=== PATIENT | male | born 1985 | race Caucasian/White ===

== ENCOUNTER 2023-08-31 13:34 | Inpatient (IN) | payer MEDICARE, OTHER ==
--- NOTE | 2023-08-31 13:45 | ED ---
General Adult HPI - General Stated complaint: High Blood Sugar Time Seen by Provider: 08/31/23 13:38 - History of Present Illness Initial comments: Dictation was produced using [employer] dictation software. please excuse any grammatical, word or spelling errors. Chief Complaint: 38-year-old diabetic male presents to the ER from [place] emergency room for DKA History of Present Illness: Patient 38-year-old male he initially presented to [place] emergency department for nausea and vomiting for couple days. Patient ran out of his long-acting insulin due to insurance issues. He has been trying to manage his diabetes with quick acting insulin. Patient was seen and evaluated at outside emergency department found to be DKA. Patient had a gap in the 40s with a bicarb less than 5. He had an initial glucose of 904. Patient also has stress leukocytosis. Patient Nuys any pain complaints at the bedside he feels much better since getting fluids and being on insulin drip for some time. He has no pain complaints. Denies any fever chills or night sweats. The ROS documented in this emergency department record has been reviewed and confirmed by me. Those systems with pertinent positive or negative responses have been documented in the HPI. All other systems are other negative and/or noncontributory. - Related Data Home Medications Medication Instructions Recorded Confirmed Aspirin EC [Ecotrin Low Dose] 81 mg PO DIRECTED 08/31/23 08/31/23 INSULIN ASPART (NovoLOG) [NovoLOG See Protocol SQ DIRECTED 08/31/23 08/31/23 (formulary)] Insulin Glargine [Lantus Vial] 20 unit SQ DIRECTED 08/31/23 08/31/23 Losartan [Cozaar] 25 mg PO DIRECTED 08/31/23 08/31/23 Rosuvastatin [Crestor] 20 mg PO DIRECTED 08/31/23 08/31/23 carBAMazepine [carBAMazepine ER] 100 mg PO Q12HR 08/31/23 08/31/23 clonazePAM 0.5 mg PO Q12H PRN 08/31/23 08/31/23 Allergies Allergy/AdvReac Type Severity Reaction Status Date / Time codeine Allergy see comment Verified 08/31/23 14:47 Review of Systems ROS Statement: Those systems with pertinent positive or pertinent negative responses have been documented in the HPI. ROS Other: All systems not noted in ROS Statement are negative. General Exam - General Exam Comments Initial Comments: PHYSICAL EXAM: General Impression: Alert and oriented x3, not in acute distress HEENT: Normocephalic atraumatic, extra-ocular movements intact, pupils equal and reactive to light bilaterally, dry mucous membranes Cardiovascular: Heart regular rate and rhythm Chest: Able to complete full sentences, no retractions, no tachypnea Abdomen: abdomen soft, non-tender, non-distended, no organomegaly Musculoskeletal: Pulses present and equal in all extremities, no peripheral edema Motor: no focal deficits noted Neurological: CN II-XII grossly intact, no focal motor or sensory deficits noted Skin: Intact with no visualized rashes Psych: Normal affect and mood Course Vital Signs 08/31/23 08/31/23 13:52 14:28 Temperature 98.8 F Pulse Rate 115 H Respiratory 20 Rate Blood Pressure 119/74 O2 Sat by Pulse 100 Oximetry Medical Decision Making - Medical Decision Making Was pt. sent in by a medical professional or institution (, PA, STITCHING MACHINE OPERATOR, urgent care, hospital, or residential...) When possible be specific @ -Sent in from outside ER Did you speak to anyone other than the patient for history (EMS, parent, family, police, friend...)? What history was obtained from this source @ -Some history obtained from transferring ER doctor along with EMS Did you review nursing and triage notes (agree or disagree)? Why? @ -I reviewed and agree with nursing and triage notes Were old charts reviewed (outside hosp., previous admission, EMS record, old EKG, old radiological studies, urgent care reports/EKG's, residential records)? Report findings @ -Transfer documentation was reviewed showing patient had leukocytosis along with bicarb less than 5, glucose of 904, anion gap in the 40s Differential Diagnosis (chest pain, altered mental status, abdominal pain women, abdominal pain men, vaginal bleeding, musculoskeletal, weakness, fever, dyspnea, syncope, headache, dizziness, GI bleed, back pain, seizure, CVA, palpatations, mental health)? @ -Differential Weakness: Hypoglycemia, shock, sepsis, hyponatremia, anemia, infection, WI, ETOH, adverse medicine reaction, overdose, stroke, this is not meant to be an all-inclusive list. EKG interpreted by me (3pts min.). @ -None done X-rays interpreted by me (1pt min.). @ -None done CT interpreted by me (1pt min.). @ -None done U/S interpreted by me (1pt. min.). @ -None done What testing was considered but not performed or refused? (CT, X-rays, U/S, labs)? Why? @ -None What meds were considered but not given or refused? Why? @ -None Did you discuss the management of the patient with other professionals (professionals i.e. , PA, STITCHING MACHINE OPERATOR, lab, RT, psych nurse, psychiatric social worker, supervisor intelligence analyst, teacher, debt recovery officer, test case developer)? Give summary @ -Case discussed with hospitalist for admission Was smoking cessation discussed for >3mins.? @ -No Was critical care preformed (if so, how long)? @ -No Were there social determinants of health that impacted care today? How? (Homelessness, low income, unemployed, alcoholism, drug addiction, transportation, low edu. Level, literacy, decrease access to med. care, longterm, rehab)? @ -No Was there de-escalation of care discussed even if they declined (Discuss DNR or withdrawal of care, Hospice)? DNR status @ -No What co-morbidities impacted this encounter? (DM, HTN, Smoking, COPD, CAD, Cancer, CVA, ARF, Chemo, Hep., AIDS, mental health diagnosis, sleep apnea, morbid obesity)? @ -None Was patient admitted / discharged? Hospital course, mention meds given and route, prescriptions, significant lab abnormalities, going to OR and other pertinent info. @ -38-year-old male transferred from outside emergency department for diabetic ketoacidosis. Patient had significantly abnormal labs according to transfer documentation. Vital signs upon arrival shows heart rate of 115, rest of vital signs within acceptable limits. Patient is mentating well he does appear to be in no acute distress. Does not smell of acetone. Laboratory evaluation ordered here with improvement of leukocytosis to 16.2, pseudo hyponatremia 127, gap of 23 bicarb of 10 and glucose of 4 3. Patient's labs are significantly improved after several minutes on insulin drip and IV fluids. Patient will be admitted to telemetry. Undiagnosed new problem with uncertain prognosis? @ -No Drug Therapy requiring intensive monitoring for toxicity (Heparin, Nitro, Insulin, Cardizem)? @ -No Were any procedures done? @ -No Diagnosis/symptom? Acute, or Chronic, or Acute on Chronic? Uncomplicated (without systemic symptoms) or Complicated (systemic symptoms)? @ -Diabetic ketoacidosis Side effects of treatment? @ -No Exacerbation, Progression, or Severe Exacerbation? @ -No Poses a threat to life? threat to life, COPD, DKA, ARF, appy, cholecystitis, CVA, Diverticulitis, Homicidal, Suicidal, threat to staff... and all critical care pts) @ -yes - Lab Data Result diagrams: 08/31/23 14:06 08/31/23 14:06 Lab Results 08/31/23 08/31/23 08/31/23 Range/Units 14:06 14:06 14:06 WBC 16.2 H (3.8-10.6) k/uL RBC 4.17 L (4.30-5.90) m/uL Hgb 12.5 L (13.0-17.5) gm/dL Hct 39.3 (39.0-53.0) % MCV 94.1 (80.0-100.0) fL MCH 29.9 (25.0-35.0) pg MCHC 31.7 (31.0-37.0) g/dL RDW 13.0 (11.5-15.5) % Plt Count 251 (150-450) k/uL MPV 8.5 Neutrophils % 86 % Lymphocytes % 6 % Monocytes % 7 % Eosinophils % 0 % Basophils % 0 % Neutrophils # 13.9 H (1.3-7.7) k/uL Lymphocytes # 0.9 L (1.0-4.8) k/uL Monocytes # 1.2 H (0-1.0) k/uL Eosinophils # 0.0 (0-0.7) k/uL Basophils # 0.0 (0-0.2) k/uL Sodium 127 L (137-145) mmol/L Potassium 3.6 (3.5-5.1) mmol/L Chloride 94 L (98-107) mmol/L Carbon Dioxide 10 L (22-30) mmol/L Anion Gap 23 mmol/L BUN 29 H (9-20) mg/dL Creatinine 1.14 (0.66-1.25) mg/dL Est GFR (CKD-EPI)AfAm >90 (>60 ml/min/1.73 sqM) Est GFR (CKD-EPI)NonAf 82 (>60 ml/min/1.73 sqM) Glucose 403 H (74-99) mg/dL POC Glucose (mg/dL) 393 H (70-110) mg/dL POC Glu Ortho Nurse Sonny Washington Calcium 7.8 L (8.4-10.2) mg/dL Disposition Clinical Impression: DKA (diabetic ketoacidosis) Disposition: ADMITTED IP TO THIS HOSP Condition: Fair Referrals: Rodolfo Yoon MD [Primary Care Provider] - 1-2 days Decision Time: 15:03
[2023-08-31 14:07] LABS: Glucose,Whole Blood 393 mg/dL (70-110)
[2023-08-31] MEDS: INSULIN REGULAR 100 UNIT in SODIUM CHLORIDE 0.9% 100 ML IV SCH (14:13)
[2023-08-31] MEDS: SODIUM CHLORIDE 0.9% 1,000 ML IV SCH (14:15)
[2023-08-31 14:53] LABS: African American GFR (CKD) >90 (>60 ml/min/1.73 sqM); Anion Gap 23 mmol/L; Blood Urea Nitrogen 29 mg/dL (9-20); Calcium 7.8 mg/dL (8.4-10.2); Carbon Dioxide 10 mmol/L (22-30); Chloride 94 mmol/L (98-107); Glucose 403 mg/dL (74-99); Non-African American GFR(CKD) 82 (>60 ml/min/1.73 sqM); Potassium 3.6 mmol/L (3.5-5.1); Sodium 127 mmol/L (137-145)
[2023-08-31 14:54] LABS: Basophils % (A) 0 %; Eosinophils % (A) 0 %; HCT 39.3 % (39.0-53.0); HGB 12.5 gm/dL (13.0-17.5); Lymphocytes # (A) 0.9 k/uL (1.0-4.8); Lymphocytes % (A) 6 %; MCH 29.9 pg (25.0-35.0); MCHC 31.7 g/dL (31.0-37.0); MCV 94.1 fL (80.0-100.0); Mean Platelet Volume 8.5; Monocytes # (A) 1.2 k/uL (0-1.0); Monocytes % (A) 7 %; Neutrophils # (A) 13.9 k/uL (1.3-7.7); Neutrophils % (A) 86 %; Platelet Count 251 k/uL (150-450); RBC 4.17 m/uL (4.30-5.90); WBC 16.2 k/uL (3.8-10.6)
[2023-08-31] MEDS ORDERED: NALOXONE 0.4 MG/ML 1 ML VIAL IV PRN (14:58)
[2023-08-31 15:05] LABS: Glucose,Whole Blood 333 mg/dL (70-110)
[2023-08-31 15:18] LABS: VBG PH 7.25 (7.31-7.41)
[2023-08-31] MEDS: PANTOPRAZOLE 40 MG/10 ML VIAL IVP SCH ×2 (15:26→21:04)
--- NOTE | 2023-08-31 15:55 | P.CNPUL ---
History of Present Illness Consult date: 08/31/23 Requesting physician: Vadim Moreau Reason for consult: other (Possible ICU admission) Chief complaint: Nausea vomiting History of present illness: This is a 38-year-old male patient with a known history of diabetes mellitus hypertension, hyperlipidemia. He had been without his long-acting insulin for nearly 2 months due to insurance issues. He presented to [facility] earlier today with nausea and vomiting. He was found to be in DKA. He was transferred here for further care. He is seen in consultation in the emergency department. He is currently awake and alert in no acute distress. He is still somewhat nauseated. He is having issues with heartburn. White count 16.2. H emoglobin 12.5. Platelets 251. Sodium 127. Potassium 3.6. Bicarb 10. Anion gap 23. BUN 29. Creatinine 1.14. Most recent glucose 333. He is currently on an insulin drip at 5.77 units/h. He is receiving normal saline at 200 MLS per hour. Review of Systems REVIEW OF SYSTEMS: CONSTITUTIONAL: Denies any recent significant weight loss or weight gain. EYES: Denies change in vision. EARS, NOSE, MOUTH, THROAT: Denies headaches, denies sore throat. CARDIOVASCULAR: Denies chest pain, palpitations or syncopal episodes. RESPIRATORY: Denies shortness of breath, cough, congestion or hemoptysis. GASTROINTESTINAL: Positive for nausea, vomiting, abdominal pain GENITOURINARY: Denies hematuria, denies infections. MUSKULOSKELETAL: Denies pain, denies swelling. INTEGUMENTARY: Denies rash, denies eczema. NEUROLOGICAL: Denies recent memory loss, no recent seizure activity. PSYCHIATRIC: Denies anxiety, denies depression. HEMATOLOGIC/LYMPHATIC: Denies anemia, denies enlarged lymph nodes. Past Medical History Past Medical History: Diabetes Mellitus History of Any Multi-Drug Resistant Organisms: None Reported Past Surgical History: No Surgical Hx Reported Past Psychological History: ADD/ADHD, Bipolar Smoking Status: Current every day smoker Past Alcohol Use History: Daily Past Drug Use History: None Reported Medications and Allergies Home Medications Medication Instructions Recorded Confirmed Type Aspirin EC [Ecotrin Low Dose] 81 mg PO DIRECTED 08/31/23 08/31/23 History INSULIN ASPART (NovoLOG) [NovoLOG See Protocol SQ DIRECTED 08/31/23 08/31/23 History (formulary)] Insulin Glargine [Lantus Vial] 20 unit SQ DIRECTED 08/31/23 08/31/23 History Losartan [Cozaar] 25 mg PO DIRECTED 08/31/23 08/31/23 History Rosuvastatin [Crestor] 20 mg PO DIRECTED 08/31/23 08/31/23 History carBAMazepine [carBAMazepine ER] 100 mg PO Q12HR 08/31/23 08/31/23 History clonazePAM 0.5 mg PO Q12H PRN 08/31/23 08/31/23 History Allergies Allergy/AdvReac Type Severity Reaction Status Date / Time codeine Allergy see comment Verified 08/31/23 14:47 Physical Exam Vitals: Vital Signs Temp Pulse Resp BP Pulse Ox 08/31/23 15:05 110 H 22 103/72 99 08/31/23 14:28 98.8 F 119/74 08/31/23 13:52 115 H 20 100 Intake and Output 08/31/23 08/31/23 08/31/23 06:59 14:59 22:59 Other: Weight 57.153 kg GENERAL EXAM: Alert, pleasant 38-year-old male, room air, fairly comfortable in no apparent distress. HEAD: Normocephalic. EYES: Normal reaction of pupils, equal size. NOSE: Clear with pink turbinates. THROAT: No erythema or exudates. NECK: No masses, no JVD. CHEST: No chest wall deformity. LUNGS: Equal air entry with no crackles, wheeze, rhonchi or dullness. CVS: S1 and S2 normal with no audible murmur, regular rhythm. ABDOMEN: No hepatosplenomegaly, normal bowel sounds, no guarding or rigidity. SPINE: No scoliosis or deformity SKIN: No rashes CENTRAL NERVOUS SYSTEM: No focal deficits, tone is normal in all 4 extremities. EXTREMITIES: There is no peripheral edema. No clubbing, no cyanosis. Peripheral pulses are intact. Results - Laboratory Findings CBC and BMP: 08/31/23 14:06 08/31/23 14:06 Abnormal lab findings: Abnormal Labs 08/31/23 08/31/23 08/31/23 14:06 14:06 14:06 WBC 16.2 H RBC 4.17 L Hgb 12.5 L Neutrophils # 13.9 H Lymphocytes # 0.9 L Monocytes # 1.2 H VBG pH VBG pCO2 VBG HCO3 Sodium 127 L Chloride 94 L Carbon Dioxide 10 L BUN 29 H Glucose 403 H POC Glucose (mg/dL) 393 H Calcium 7.8 L 08/31/23 08/31/23 15:03 15:05 WBC RBC Hgb Neutrophils # Lymphocytes # Monocytes # VBG pH 7.25 L VBG pCO2 27 L VBG HCO3 12 L Sodium Chloride Carbon Dioxide BUN Glucose POC Glucose (mg/dL) 333 H Calcium Assessment and Plan Assessment: Acute diabetic ketoacidosis secondary to nausea and vomiting and being without long acting insulin for nearly 2 months History of diabetes mellitus Hyponatremia Hypertension Hyperlipidemia Plan: The patient was seen and evaluated Labs and medications reviewed Continue insulin drip Continue fluid resuscitation Await follow-up labs Social work consult to assist with medication costs We will continue to follow and make further recommendations based on his clinical status I have personally seen and examined the patient, performed the documentation and the assessment and plan as written. Number of minutes spent on the visit: 20.
[2023-08-31 16:03] LABS: Glucose,Whole Blood 253 mg/dL (70-110)
[2023-08-31 16:20] LABS: African American GFR (CKD) >90 (>60 ml/min/1.73 sqM); Anion Gap 22 mmol/L; Blood Urea Nitrogen 26 mg/dL (9-20); Carbon Dioxide 11 mmol/L (22-30); Chloride 97 mmol/L (98-107); Glucose 282 mg/dL (74-99); Non-African American GFR(CKD) >90 (>60 ml/min/1.73 sqM); Potassium 3.7 mmol/L (3.5-5.1); Sodium 130 mmol/L (137-145)
[2023-08-31] MEDS: D5-0.45% NACL WITH KCL 20MEQ/L 1,000 ML IV SCH (16:45)
[2023-08-31 17:02] LABS: Glucose,Whole Blood 180 mg/dL (70-110)
[2023-08-31] MEDS ORDERED: Potassium Replacement Protocol 1 EACH MISC MISCELLANE PRN (17:57)
[2023-08-31] MEDS ORDERED: Magnesium Replacement Protocol 1 EACH MISC MISCELLANE PRN (17:57)
[2023-08-31] MEDS ORDERED: DEXTROSE 50% SYRINGE 50 ML IVP PRN ×2 (17:57)
[2023-08-31] MEDS ORDERED: ACETAMINOPHEN TAB 325 MG TAB PO PRN (17:58)
[2023-08-31] MEDS ORDERED: MELATONIN 3 MG TABLET PO PRN (17:58)
[2023-08-31 18:01] LABS: Glucose,Whole Blood 165 mg/dL (70-110)
--- NOTE | 2023-08-31 18:07 | P.HPIM ---
History of Present Illness H&P Date: 08/31/23 Chief Complaint: vomiting Patient is a 38-year-old male with insulin-dependent diabetes mellitus, hypertension, dyslipidemia, tobacco abuse, and EtOH dependency who initially presented to an outside hospital with complaints of intractable nausea and vomiting. There he underwent extensive evaluation was found to have DKA with a serum bicarb of less then 5, blood sugar greater than 500, and sodium of 126. He was given IV fluid boluses, started on maintenance IV fluids, and an insulin drip. On arrival to our facility he was noted to be tachycardic with a pulse of 115. Initial laboratory analysis included CBC, VBG, and BMP which were remarkable for white blood cell count of 16.2, sodium 127, BUN 29, creatinine 1.14, glucose of 403, and pH of 7.25. He was continued on IV fluids and an insulin drip. Arrangements were made for admission for DKA. Patient seen and examined at bedside. He had a change in his insurance from Medicare to Medicaid and since that time has been struggling to obtain insulin as they are no longer covering his long acting insulin. He reports that he has been very fatigued, nauseous, and vomiting. His last episode of DKA was approximately 1 year ago. He denies any recent illnesses or fevers. He drinks 3 beers every other day and smokes approximately 1 pack daily. Vital signs reviewed General: Ill-appearing, mild distress, poor dentition, appears at stated age Derm: warm, dry, multiple tattoos Eyes: EOMI, no lid lag, anicteric sclera, pupils equal round reactive to light, dry mucous membranes ENT: Nose and ears atraumatic Cardiovascular: S1S2 reg, no murmur, no edema Lungs: clear to auscultation bilateral, no rhonchi, no rales, no wheeze, no accessory muscle use Abdominal: soft, nontender to palpation, no guarding Ext: no gross muscle atrophy, no contractures Neuro: CN II-XII grossly intact, No focal neuro deficits Psych: Alert, oriented, appropriate affect Assessment/Plan: DKA secondary to difficulty obtaining medications Pseudohyponatremia Dehydration Intractable nausea and vomiting -Continue with insulin drip. Currently at 5 units/h will adjust based on blood sugars -Continue with D5 half-normal saline at 150 cc/h -Continue with every hour blood sugar checks. Continue to follow phosphorus every 4 hours, BUN every 4 hours, electrolytes every 4 hours, and creatinine every 4 hours. -Clear liquid diet -Check A1c -Will need to work with outpatient pharmacy to determine what insulins are covered on his Medicaid plan. Hypertension Dyslipidemia -Patient has not been taking any of his medications and blood pressure is currently 103/72. Will continue to monitor blood pressures -Once vomiting is resolved we will resume statin Tobacco dependency -Nicotine patch 21 mcg daily Alcohol use -Patient denies ever having alcohol withdrawal during any of his prior DKA episodes -Will monitor with CIWA but will hold off on benzodiazepine use at this time -Start thiamine 100 mg and folic acid 1 mg daily Imaging: None Data Review: As per HPI The patient is admitted with an anticipated greater than 2 midnight stay for evaluation of DKA DVT prophylaxis: Lovenox Anticipated discharge date: 2-[address]: Home This dictation was prepared using [email or web address] voice recognition software. Though every attempt is made to correct errors during dictation some may still exist. Past Medical History Past Medical History: Diabetes Mellitus, Hyperlipidemia, Hypertension Additional Past Medical History / Comment(s): seizure History of Any Multi-Drug Resistant Organisms: None Reported Past Surgical History: No Surgical Hx Reported Past Anesthesia/Blood Transfusion Reactions: No Reported Reaction Past Psychological History: ADD/ADHD, Bipolar Smoking Status: Current every day smoker Past Alcohol Use History: Daily Past Drug Use History: None Reported Medications and Allergies Home Medications Medication Instructions Recorded Confirmed Type Aspirin EC [Ecotrin Low Dose] 81 mg PO DIRECTED 08/31/23 08/31/23 History INSULIN ASPART (NovoLOG) [NovoLOG See Protocol SQ DIRECTED 08/31/23 08/31/23 History (formulary)] Insulin Glargine [Lantus Vial] 20 unit SQ DIRECTED 08/31/23 08/31/23 History Losartan [Cozaar] 25 mg PO DIRECTED 08/31/23 08/31/23 History Rosuvastatin [Crestor] 20 mg PO DIRECTED 08/31/23 08/31/23 History carBAMazepine [carBAMazepine ER] 100 mg PO Q12HR 08/31/23 08/31/23 History clonazePAM 0.5 mg PO Q12H PRN 08/31/23 08/31/23 History Allergies Allergy/AdvReac Type Severity Reaction Status Date / Time codeine Allergy see comment Verified 08/31/23 14:47 Physical Exam Osteopathic Statement: *. No significant issues noted on an osteopathic structural exam other than those noted in the History and Physical/Consult. Vitals: Vital Signs Temp Pulse Resp BP Pulse Ox 08/31/23 15:05 110 H 22 103/72 99 08/31/23 14:28 98.8 F 119/74 08/31/23 13:52 115 H 20 100 Intake and Output 08/31/23 08/31/23 08/31/23 06:59 14:59 22:59 Intake Total 10.486 Balance 10.486 Intake: Intake, IV Titration 10.486 Amount Insulin Regular 100 unit 10.486 In Sodium Chloride 0.9% 100 ml @ 0.1 UNITS/KG/HR 5.772 mls/hr IV .[id number] [facility] Rx#:[id number] Other: Voiding Method Urinal Weight 57.153 kg 57.153 kg Results CBC & Chem 7: 08/31/23 14:06 08/31/23 15:39 Labs: Abnormal Lab Results - Last 24 Hours (Table) 08/31/23 08/31/23 08/31/23 Range/Units 14:06 14:06 14:06 WBC 16.2 H (3.8-10.6) k/uL RBC 4.17 L (4.30-5.90) m/uL Hgb 12.5 L (13.0-17.5) gm/dL Neutrophils # 13.9 H (1.3-7.7) k/uL Lymphocytes # 0.9 L (1.0-4.8) k/uL Monocytes # 1.2 H (0-1.0) k/uL VBG pH (7.31-7.41) VBG pCO2 (37-51) mmHg VBG HCO3 (24-28) mmol/L Sodium 127 L (137-145) mmol/L Chloride 94 L (98-107) mmol/L Carbon Dioxide 10 L (22-30) mmol/L BUN 29 H (9-20) mg/dL Glucose 403 H (74-99) mg/dL POC Glucose (mg/dL) 393 H (70-110) mg/dL Calcium 7.8 L (8.4-10.2) mg/dL Phosphorus (2.5-4.5) mg/dL 08/31/23 08/31/23 08/31/23 Range/Units 15:03 15:05 15:39 WBC (3.8-10.6) k/uL RBC (4.30-5.90) m/uL Hgb (13.0-17.5) gm/dL Neutrophils # (1.3-7.7) k/uL Lymphocytes # (1.0-4.8) k/uL Monocytes # (0-1.0) k/uL VBG pH 7.25 L (7.31-7.41) VBG pCO2 27 L (37-51) mmHg VBG HCO3 12 L (24-28) mmol/L Sodium 130 L (137-145) mmol/L Chloride 97 L (98-107) mmol/L Carbon Dioxide 11 L (22-30) mmol/L BUN 26 H (9-20) mg/dL Glucose 282 H (74-99) mg/dL POC Glucose (mg/dL) 333 H (70-110) mg/dL Calcium (8.4-10.2) mg/dL Phosphorus 2.0 L (2.5-4.5) mg/dL 08/31/23 08/31/23 08/31/23 Range/Units 16:01 17:02 17:58 WBC (3.8-10.6) k/uL RBC (4.30-5.90) m/uL Hgb (13.0-17.5) gm/dL Neutrophils # (1.3-7.7) k/uL Lymphocytes # (1.0-4.8) k/uL Monocytes # (0-1.0) k/uL VBG pH (7.31-7.41) VBG pCO2 (37-51) mmHg VBG HCO3 (24-28) mmol/L Sodium (137-145) mmol/L Chloride (98-107) mmol/L Carbon Dioxide (22-30) mmol/L BUN (9-20) mg/dL Glucose (74-99) mg/dL POC Glucose (mg/dL) 253 H 180 H 165 H (70-110) mg/dL Calcium (8.4-10.2) mg/dL Phosphorus (2.5-4.5) mg/dL
[2023-08-31] MEDS: NICOTINE 21MG/24HR PATCH TRANSDERM SCH (18:13)
[2023-08-31 18:55] LABS: Glucose,Whole Blood 156 mg/dL (70-110)
[2023-08-31 19:57] LABS: Glucose,Whole Blood 146 mg/dL (70-110)
[2023-08-31] MEDS: CALCIUM CARBONATE 500 MG CHEWABLE PO PRN (19:58)
[2023-08-31 20:36] LABS: African American GFR (CKD) >90 (>60 ml/min/1.73 sqM); Anion Gap 7 mmol/L; Blood Urea Nitrogen 19 mg/dL (9-20); Carbon Dioxide 20 mmol/L (22-30); Chloride 104 mmol/L (98-107); Glucose 126 mg/dL (74-99); Non-African American GFR(CKD) >90 (>60 ml/min/1.73 sqM); Phosphorus 1.2 mg/dL (2.5-4.5); Potassium 3.6 mmol/L (3.5-5.1); Sodium 131 mmol/L (137-145)
[2023-08-31 20:59] LABS: Glucose,Whole Blood 132 mg/dL (70-110)
[2023-08-31 22:06] LABS: Glucose,Whole Blood 136 mg/dL (70-110)
[2023-08-31 22:57] LABS: Glucose,Whole Blood 153 mg/dL (70-110)
[2023-08-31] MEDS: HYDROcodone/APAP 5-325MG 1 EACH TAB PO PRN (23:07)
[2023-08-31] MEDS: ONDANSETRON 4 MG/2 ML VIAL IVP PRN (23:08)
[2023-09-01] LABS: Glucose,Whole Blood 191 mg/dL (70-110)
[2023-09-01 01:06] LABS: Glucose,Whole Blood 201 mg/dL (70-110)
[2023-09-01 02:02] LABS: Glucose,Whole Blood 240 mg/dL (70-110)
[2023-09-01 03:02] LABS: Glucose,Whole Blood 232 mg/dL (70-110)
[2023-09-01 04:10] LABS: Glucose,Whole Blood 227 mg/dL (70-110)
[2023-09-01 05:13] LABS: Glucose,Whole Blood 244 mg/dL (70-110)
[2023-09-01 06:25] LABS: Glucose,Whole Blood 236 mg/dL (70-110)
[2023-09-01 07:25] LABS: Glucose,Whole Blood 284 mg/dL (70-110)
[2023-09-01 08:14] LABS: Glucose,Whole Blood 272 mg/dL (70-110)
[2023-09-01] MEDS: THIAMINE 100 MG TAB PO SCH (08:21)
[2023-09-01] MEDS: ENOXAPARIN 40 MG/0.4 ML SYRINGE SQ SCH (08:22)
[2023-09-01 09:25] LABS: Glucose,Whole Blood 252 mg/dL (70-110)
[2023-09-01 09:30] LABS: HCT 36.8 % (39.0-53.0); HGB 11.6 gm/dL (13.0-17.5); MCH 29.3 pg (25.0-35.0); MCHC 31.5 g/dL (31.0-37.0); MCV 93.2 fL (80.0-100.0); Mean Platelet Volume 7.9; Platelet Count 207 k/uL (150-450); RBC 3.95 m/uL (4.30-5.90); RDW 13.6 % (11.5-15.5); WBC 11.8 k/uL (3.8-10.6)
[2023-09-01 09:50] LABS: African American GFR (CKD) >90 (>60 ml/min/1.73 sqM); Anion Gap 9 mmol/L; Blood Urea Nitrogen 10 mg/dL (9-20); Calcium 8.8 mg/dL (8.4-10.2); Carbon Dioxide 17 mmol/L (22-30); Chloride 104 mmol/L (98-107); Glucose 280 mg/dL (74-99); Non-African American GFR(CKD) >90 (>60 ml/min/1.73 sqM); Potassium 3.8 mmol/L (3.5-5.1); Sodium 130 mmol/L (137-145)
[2023-09-01 10:22] LABS: Glucose,Whole Blood 245 mg/dL (70-110)
[2023-09-01] MEDS: INSULIN DETEMIR (LEVEMIR) 100 UNIT/ML SYR SQ SCH ×2 (10:48→20:45)
[2023-09-01 12:25] LABS: Glucose,Whole Blood 219 mg/dL (70-110)
[2023-09-01] MEDS: INSULIN ASPART (NovoLOG) 100 UNIT/ML VIAL SQ SCH ×2 (12:49)
--- NOTE | 2023-09-01 15:04 | P.PN ---
Subjective Progress Note Date: 09/01/23 This is a 38-year-old male patient with a known history of diabetes mellitus hypertension, hyperlipidemia. He had been without his long-acting insulin for nearly 2 months due to insurance issues. He presented to [facility] earlier today with nausea and vomiting. He was found to be in DKA. He was transferred here for further care. He is seen in consultation in the emergency department. He is currently awake and alert in no acute distress. He is still somewhat nauseated. He is having issues with heartburn. White count 16.2. Hemoglobin 12.5. Platelets 251. Sodium 127. Potassium 3.6. Bicarb 10. Anion gap 23. BUN 29. Creatinine 1.14. Most recent glucose 333. He is currently on an insulin drip at 5.77 units/h. He is receiving normal saline at 200 MLS per hour. The patient is seen today September 01, 2023 in follow-up in the emergency department. He is currently resting on a stretcher. Awake and alert in no acute distress. No worsening shortness of breath. No chest pain. No palpitations. He is maintaining good O2 saturations in the 90s on room air. He is still on an i nsulin drip at 2.86 units/h. Receiving D5W and a half normal saline with 20 KCl at 150 MLS per hour. White count 11.8. Hemoglobin 11.6. Platelets 207. Sodium 130. Potassium 3.8. Bicarb 17. Anion gap 9. BUN 10. Creatinine 0.59. Glucose 280. Hemoglobin A1c 9.5. He is to be transitioned to Levemir and NovoLog sliding scale. Lovenox for DVT prophylaxis. NicoDerm patch in place. Objective - Vital Signs Vital signs: Vital Signs Temp 98.8 F 08/31/23 14:28 Pulse 107 H 09/01/23 14:01 Resp 18 09/01/23 14:01 BP 120/75 09/01/23 11:46 Pulse Ox 98 09/01/23 11:46 FiO2 Intake & Output 08/31/23 09/01/23 09/01/23 18:59 06:59 18:59 Intake Total 10.486 37.037 5.342 Output Total 700 600 Balance -689.514 37.037 -594.658 Weight 57.153 kg Intake: Intake, IV Titration 10.486 37.037 5.342 Amount Insulin Regular 100 unit 10.486 37.037 5.342 In Sodium Chloride 0.9% 100 ml @ 0.1 UNITS/KG/HR 5.772 mls/hr IV .[id number] [facility] Rx#:[id number] Output: Urine 700 600 Other: Voiding Method Urinal Urinal - Exam GENERAL EXAM: Alert, 38-year-old male, on room air, comfortable in no apparent distress. HEAD: Normocephalic. EYES: Normal reaction of pupils, equal size. NOSE: Clear with pink turbinates. THROAT: No erythema or exudates. NECK: No masses, no JVD. CHEST: No chest wall deformity. LUNGS: Equal air entry with no crackles, wheeze, rhonchi or dullness. CVS: S1 and S2 normal with no audible murmur, regular rhythm. ABDOMEN: No hepatosplenomegaly, normal bowel sounds, no guarding or rigidity. SPINE: No scoliosis or deformity SKIN: No rashes CENTRAL NERVOUS SYSTEM: No focal deficits, tone is normal in all 4 extremities. EXTREMITIES: There is no peripheral edema. No clubbing, no cyanosis. Peripheral pulses are intact. - Labs CBC & Chem 7: 09/01/23 09:01 09/01/23 09:01 Labs: Abnormal Lab Results - Last 24 Hours (Table) 08/31/23 08/31/23 08/31/23 Range/Units 14:06 14:06 15:03 WBC 16.2 H (3.8-10.6) k/uL RBC 4.17 L (4.30-5.90) m/uL Hgb 12.5 L (13.0-17.5) gm/dL Hct (39.0-53.0) % Neutrophils # 13.9 H (1.3-7.7) k/uL Lymphocytes # 0.9 L (1.0-4.8) k/uL Monocytes # 1.2 H (0-1.0) k/uL VBG pH (7.31-7.41) VBG pCO2 (37-51) mmHg VBG HCO3 (24-28) mmol/L Sodium 127 L (137-145) mmol/L Chloride 94 L (98-107) mmol/L Carbon Dioxide 10 L (22-30) mmol/L BUN 29 H (9-20) mg/dL Creatinine (0.66-1.25) mg/dL Glucose 403 H (74-99) mg/dL POC Glucose (mg/dL) 333 H (70-110) mg/dL Hemoglobin A1c (<=6.0) % Calcium 7.8 L (8.4-10.2) mg/dL Phosphorus (2.5-4.5) mg/dL 08/31/23 08/31/23 08/31/23 Range/Units 15:05 15:39 16:01 WBC (3.8-10.6) k/uL RBC (4.30-5.90) m/uL Hgb (13.0-17.5) gm/dL Hct (39.0-53.0) % Neutrophils # (1.3-7.7) k/uL Lymphocytes # (1.0-4.8) k/uL Monocytes # (0-1.0) k/uL VBG pH 7.25 L (7.31-7.41) VBG pCO2 27 L (37-51) mmHg VBG HCO3 12 L (24-28) mmol/L Sodium 130 L (137-145) mmol/L Chloride 97 L (98-107) mmol/L Carbon Dioxide 11 L (22-30) mmol/L BUN 26 H (9-20) mg/dL Creatinine (0.66-1.25) mg/dL Glucose 282 H (74-99) mg/dL POC Glucose (mg/dL) 253 H (70-110) mg/dL Hemoglobin A1c (<=6.0) % Calcium (8.4-10.2) mg/dL Phosphorus 2.0 L (2.5-4.5) mg/dL 08/31/23 08/31/23 08/31/23 Range/Units 17:02 17:58 18:54 WBC (3.8-10.6) k/uL RBC (4.30-5.90) m/uL Hgb (13.0-17.5) gm/dL Hct (39.0-53.0) % Neutrophils # (1.3-7.7) k/uL Lymphocytes # (1.0-4.8) k/uL Monocytes # (0-1.0) k/uL VBG pH (7.31-7.41) VBG pCO2 (37-51) mmHg VBG HCO3 (24-28) mmol/L Sodium (137-145) mmol/L Chloride (98-107) mmol/L Carbon Dioxide (22-30) mmol/L BUN (9-20) mg/dL Creatinine (0.66-1.25) mg/dL Glucose (74-99) mg/dL POC Glucose (mg/dL) 180 H 165 H 156 H (70-110) mg/dL Hemoglobin A1c (<=6.0) % Calcium (8.4-10.2) mg/dL Phosphorus (2.5-4.5) mg/dL 08/31/23 08/31/23 08/31/23 Range/Units 19:55 20:11 20:57 WBC (3.8-10.6) k/uL RBC (4.30-5.90) m/uL Hgb (13.0-17.5) gm/dL Hct (39.0-53.0) % Neutrophils # (1.3-7.7) k/uL Lymphocytes # (1.0-4.8) k/uL Monocytes # (0-1.0) k/uL VBG pH (7.31-7.41) VBG pCO2 (37-51) mmHg VBG HCO3 (24-28) mmol/L Sodium 131 L (137-145) mmol/L Chloride (98-107) mmol/L Carbon Dioxide 20 L (22-30) mmol/L BUN (9-20) mg/dL Creatinine (0.66-1.25) mg/dL Glucose 126 H (74-99) mg/dL POC Glucose (mg/dL) 146 H 132 H (70-110) mg/dL Hemoglobin A1c (<=6.0) % Calcium (8.4-10.2) mg/dL Phosphorus 1.2 L (2.5-4.5) mg/dL 08/31/23 08/31/23 08/31/23 Range/Units 22:04 22:55 23:58 WBC (3.8-10.6) k/uL RBC (4.30-5.90) m/uL Hgb (13.0-17.5) gm/dL Hct (39.0-53.0) % Neutrophils # (1.3-7.7) k/uL Lymphocytes # (1.0-4.8) k/uL Monocytes # (0-1.0) k/uL VBG pH (7.31-7.41) VBG pCO2 (37-51) mmHg VBG HCO3 (24-28) mmol/L Sodium (137-145) mmol/L Chloride (98-107) mmol/L Carbon Dioxide (22-30) mmol/L BUN (9-20) mg/dL Creatinine (0.66-1.25) mg/dL Glucose (74-99) mg/dL POC Glucose (mg/dL) 136 H 153 H 191 H (70-110) mg/dL Hemoglobin A1c (<=6.0) % Calcium (8.4-10.2) mg/dL Phosphorus (2.5-4.5) mg/dL 09/01/23 09/01/23 09/01/23 Range/Units 01:05 02:00 03:00 WBC (3.8-10.6) k/uL RBC (4.30-5.90) m/uL Hgb (13.0-17.5) gm/dL Hct (39.0-53.0) % Neutrophils # (1.3-7.7) k/uL Lymphocytes # (1.0-4.8) k/uL Monocytes # (0-1.0) k/uL VBG pH (7.31-7.41) VBG pCO2 (37-51) mmHg VBG HCO3 (24-28) mmol/L Sodium (137-145) mmol/L Chloride (98-107) mmol/L Carbon Dioxide (22-30) mmol/L BUN (9-20) mg/dL Creatinine (0.66-1.25) mg/dL Glucose (74-99) mg/dL POC Glucose (mg/dL) 201 H 240 H 232 H (70-110) mg/dL Hemoglobin A1c (<=6.0) % Calcium (8.4-10.2) mg/dL Phosphorus (2.5-4.5) mg/dL 09/01/23 09/01/23 09/01/23 Range/Units 04:08 05:11 06:23 WBC (3.8-10.6) k/uL RBC (4.30-5.90) m/uL Hgb (13.0-17.5) gm/dL Hct (39.0-53.0) % Neutrophils # (1.3-7.7) k/uL Lymphocytes # (1.0-4.8) k/uL Monocytes # (0-1.0) k/uL VBG pH (7.31-7.41) VBG pCO2 (37-51) mmHg VBG HCO3 (24-28) mmol/L Sodium (137-145) mmol/L Chloride (98-107) mmol/L Carbon Dioxide (22-30) mmol/L BUN (9-20) mg/dL Creatinine (0.66-1.25) mg/dL Glucose (74-99) mg/dL POC Glucose (mg/dL) 227 H 244 H 236 H (70-110) mg/dL Hemoglobin A1c (<=6.0) % Calcium (8.4-10.2) mg/dL Phosphorus (2.5-4.5) mg/dL 09/01/23 09/01/23 09/01/23 Range/Units 07:24 08:12 09:01 WBC (3.8-10.6) k/uL RBC (4.30-5.90) m/uL Hgb (13.0-17.5) gm/dL Hct (39.0-53.0) % Neutrophils # (1.3-7.7) k/uL Lymphocytes # (1.0-4.8) k/uL Monocytes # (0-1.0) k/uL VBG pH (7.31-7.41) VBG pCO2 (37-51) mmHg VBG HCO3 (24-28) mmol/L Sodium (137-145) mmol/L Chloride (98-107) mmol/L Carbon Dioxide (22-30) mmol/L BUN (9-20) mg/dL Creatinine (0.66-1.25) mg/dL Glucose (74-99) mg/dL POC Glucose (mg/dL) 284 H 272 H (70-110) mg/dL Hemoglobin A1c 9.5 H (<=6.0) % Calcium (8.4-10.2) mg/dL Phosphorus (2.5-4.5) mg/dL 09/01/23 09/01/23 09/01/23 Range/Units 09:01 09:01 09:23 WBC 11.8 H (3.8-10.6) k/uL RBC 3.95 L (4.30-5.90) m/uL Hgb 11.6 L (13.0-17.5) gm/dL Hct 36.8 L (39.0-53.0) % Neutrophils # (1.3-7.7) k/uL Lymphocytes # (1.0-4.8) k/uL Monocytes # (0-1.0) k/uL VBG pH (7.31-7.41) VBG pCO2 (37-51) mmHg VBG HCO3 (24-28) mmol/L Sodium 130 L (137-145) mmol/L Chloride (98-107) mmol/L Carbon Dioxide 17 L (22-30) mmol/L BUN (9-20) mg/dL Creatinine 0.59 L (0.66-1.25) mg/dL Glucose 280 H (74-99) mg/dL POC Glucose (mg/dL) 252 H (70-110) mg/dL Hemoglobin A1c (<=6.0) % Calcium (8.4-10.2) mg/dL Phosphorus (2.5-4.5) mg/dL 09/01/23 09/01/23 Range/Units 10:20 12:23 WBC (3.8-10.6) k/uL RBC (4.30-5.90) m/uL Hgb (13.0-17.5) gm/dL Hct (39.0-53.0) % Neutrophils # (1.3-7.7) k/uL Lymphocytes # (1.0-4.8) k/uL Monocytes # (0-1.0) k/uL VBG pH (7.31-7.41) VBG pCO2 (37-51) mmHg VBG HCO3 (24-28) mmol/L Sodium (137-145) mmol/L Chloride (98-107) mmol/L Carbon Dioxide (22-30) mmol/L BUN (9-20) mg/dL Creatinine (0.66-1.25) mg/dL Glucose (74-99) mg/dL POC Glucose (mg/dL) 245 H 219 H (70-110) mg/dL Hemoglobin A1c (<=6.0) % Calcium (8.4-10.2) mg/dL Phosphorus (2.5-4.5) mg/dL Assessment and Plan Assessment: Acute diabetic ketoacidosis secondary to nausea and vomiting and being without long acting insulin for nearly 2 months. Hemoglobin A1c 9.5% History of diabetes mellitus Hyponatremia Hypertension Hyperlipidemia Chronic tobacco dependence Plan: The patient was seen and evaluated Labs and medications reviewed Transition to Levemir and NovoLog Educated regarding the importance of medication compliance Educated regarding the importance of smoking cessation Cleared for discharge from the pulmonary standpoint I have personally seen and examined the patient, performed the documentation and the assessment and plan as written. Number of minutes spent on the visit: 10.
[2023-09-01 16:51] LABS: Glucose,Whole Blood 97 mg/dL (70-110)
--- NOTE | 2023-09-01 19:14 | P.PN ---
Subjective Progress Note Date: 09/01/23 (delayed charting seen at 0910) Patient is a 38-year-old male with insulin-dependent diabetes mellitus, hypertension, dyslipidemia, tobacco abuse, and EtOH dependency who initially presented to an outside hospital with complaints of intractable nausea and vomiting. There he underwent extensive evaluation was found to have DKA with a serum bicarb of less then 5, blood sugar greater than 500, and sodium of 126. He was given IV fluid boluses, started on maintenance IV fluids, and an insulin drip. On arrival to our facility he was noted to be tachycardic with a pulse of 115. Initial laboratory analysis included CBC, VBG, and BMP which were remarkable for white blood cell count of 16.2, sodium 127, BUN 29, creatinine 1.14, glucose of 403, and pH of 7.25. He was continued on IV fluids and an insulin drip. Arrangements were made for admission for DKA. He continued on insulin drip. His anion gap resolved and he was transition to long and short acting insulin. Patient seen and examined at bedside. He is feeling better today than yesterday. His vomiting has resolved but his throat is feeling very sore from all the vomiting. Denies any chest pain, shortness of breath, lightheadedness, dizziness. Vital signs reviewed General: Nontoxic, no distress, appears at stated age Cardiovascular: S1S2 reg, no murmur Lungs: CTA bilateral, no rhonchi, no rales, no accessory muscle use Abdominal: Soft, nontender to palpation, no guarding Ext: No gross muscle atrophy, no edema b/l lower extremities, no contractures Neuro: CN II-XI grossly intact, no focal neuro deficits Psych: Alert, oriented, appropriate affect Assessment/Plan: DKA secondary to difficulty obtaining medication -Stop insulin drip. Start Levemir 9 units twice daily, NovoLog 16 units with meals, sliding scale insulin -Follow blood sugars -Patient will get 2 weeks of indigent meds on discharge. -Discussed extensively with case management team. Patient has no medication coverage but they have instructed him to switch Medicaid to primary. Hyponatremia, mild Dehydration, improved Intractable nausea and vomiting, resolved Hypertension Dyslipidemia -Patient has not been taking any of his medications and blood pressure is currently 113/75. Will continue to monitor blood pressures - hold statin Tobacco dependency -Nicotine patch 21 mcg daily Alcohol use -Patient denies ever having alcohol withdrawal during any of his prior DKA episodes -Will monitor with CIWA but will hold off on benzodiazepine use at this time -Start thiamine 100 mg and folic acid 1 mg daily Imaging: None new Data Review: Labs reviewed from today include CBC and basic metabolic profile which are remarkable for white blood cell count 11.8, hemoglobin 11.6, sodium 130, carbon dioxide 17, glucose 280. A1C 9.5 DVT prophylaxis: Lovenox Anticipated discharge date: in AM Anticipated discharge place: Home This dictation was prepared using [employer] voice recognition software. Though every attempt is made to correct errors during dictation some may still exist. Objective - Vital Signs Vital signs: Vital Signs Temp 98.8 F 08/31/23 14:28 Pulse 91 09/01/23 16:45 Resp 18 09/01/23 16:45 BP 113/75 09/01/23 16:45 Pulse Ox 97 09/01/23 16:45 FiO2 Intake & Output 09/01/23 09/01/23 09/02/23 06:59 18:59 06:59 Intake Total 37.037 5.342 Output Total 1500 Balance 37.037 -1494.658 Intake: Intake, IV Titration 37.037 5.342 Amount Insulin Regular 100 unit 37.037 5.342 In Sodium Chloride 0.9% 100 ml @ 0.1 UNITS/KG/HR 5.772 mls/hr IV .[id number] [facility] Rx#:[id number] Output: Urine 1500 Other: Voiding Method Urinal - Labs CBC & Chem 7: 09/01/23 09:01 09/01/23 09:01 Labs: Abnormal Lab Results - Last 24 Hours (Table) 08/31/23 08/31/23 08/31/23 Range/Units 19:55 20:11 20:57 WBC (3.8-10.6) k/uL RBC (4.30-5.90) m/uL Hgb (13.0-17.5) gm/dL Hct (39.0-53.0) % Sodium 131 L (137-145) mmol/L Carbon Dioxide 20 L (22-30) mmol/L Creatinine (0.66-1.25) mg/dL Glucose 126 H (74-99) mg/dL POC Glucose (mg/dL) 146 H 132 H (70-110) mg/dL Hemoglobin A1c (<=6.0) % Phosphorus 1.2 L (2.5-4.5) mg/dL 08/31/23 08/31/23 08/31/23 Range/Units 22:04 22:55 23:58 WBC (3.8-10.6) k/uL RBC (4.30-5.90) m/uL Hgb (13.0-17.5) gm/dL Hct (39.0-53.0) % Sodium (137-145) mmol/L Carbon Dioxide (22-30) mmol/L Creatinine (0.66-1.25) mg/dL Glucose (74-99) mg/dL POC Glucose (mg/dL) 136 H 153 H 191 H (70-110) mg/dL Hemoglobin A1c (<=6.0) % Phosphorus (2.5-4.5) mg/dL 09/01/23 09/01/23 09/01/23 Range/Units 01:05 02:00 03:00 WBC (3.8-10.6) k/uL RBC (4.30-5.90) m/uL Hgb (13.0-17.5) gm/dL Hct (39.0-53.0) % Sodium (137-145) mmol/L Carbon Dioxide (22-30) mmol/L Creatinine (0.66-1.25) mg/dL Glucose (74-99) mg/dL POC Glucose (mg/dL) 201 H 240 H 232 H (70-110) mg/dL Hemoglobin A1c (<=6.0) % Phosphorus (2.5-4.5) mg/dL 09/01/23 09/01/23 09/01/23 Range/Units 04:08 05:11 06:23 WBC (3.8-10.6) k/uL RBC (4.30-5.90) m/uL Hgb (13.0-17.5) gm/dL Hct (39.0-53.0) % Sodium (137-145) mmol/L Carbon Dioxide (22-30) mmol/L Creatinine (0.66-1.25) mg/dL Glucose (74-99) mg/dL POC Glucose (mg/dL) 227 H 244 H 236 H (70-110) mg/dL Hemoglobin A1c (<=6.0) % Phosphorus (2.5-4.5) mg/dL 09/01/23 09/01/23 09/01/23 Range/Units 07:24 08:12 09:01 WBC (3.8-10.6) k/uL RBC (4.30-5.90) m/uL Hgb (13.0-17.5) gm/dL Hct (39.0-53.0) % Sodium (137-145) mmol/L Carbon Dioxide (22-30) mmol/L Creatinine (0.66-1.25) mg/dL Glucose (74-99) mg/dL POC Glucose (mg/dL) 284 H 272 H (70-110) mg/dL Hemoglobin A1c 9.5 H (<=6.0) % Phosphorus (2.5-4.5) mg/dL 09/01/23 09/01/23 09/01/23 Range/Units 09:01 09:01 09:23 WBC 11.8 H (3.8-10.6) k/uL RBC 3.95 L (4.30-5.90) m/uL Hgb 11.6 L (13.0-17.5) gm/dL Hct 36.8 L (39.0-53.0) % Sodium 130 L (137-145) mmol/L Carbon Dioxide 17 L (22-30) mmol/L Creatinine 0.59 L (0.66-1.25) mg/dL Glucose 280 H (74-99) mg/dL POC Glucose (mg/dL) 252 H (70-110) mg/dL Hemoglobin A1c (<=6.0) % Phosphorus (2.5-4.5) mg/dL 09/01/23 09/01/23 Range/Units 10:20 12:23 WBC (3.8-10.6) k/uL RBC (4.30-5.90) m/uL Hgb (13.0-17.5) gm/dL Hct (39.0-53.0) % Sodium (137-145) mmol/L Carbon Dioxide (22-30) mmol/L Creatinine (0.66-1.25) mg/dL Glucose (74-99) mg/dL POC Glucose (mg/dL) 245 H 219 H (70-110) mg/dL Hemoglobin A1c (<=6.0) % Phosphorus (2.5-4.5) mg/dL
[2023-09-01 20:06] LABS: Glucose,Whole Blood 208 mg/dL (70-110)
[2023-09-02 02:00] LABS: Glucose,Whole Blood 179 mg/dL (70-110)
[2023-09-02 05:56] LABS: Glucose,Whole Blood 186 mg/dL (70-110)
[2023-09-02] MEDS: INSULIN ASPART (NovoLOG) 100 UNIT/ML VIAL SQ SCH (07:07)
[2023-09-02 07:47] LABS: HCT 41.8 % (39.0-53.0); HGB 13.1 gm/dL (13.0-17.5); MCH 29.1 pg (25.0-35.0); MCHC 31.5 g/dL (31.0-37.0); MCV 92.5 fL (80.0-100.0); Mean Platelet Volume 7.9; Platelet Count 219 k/uL (150-450); RBC 4.51 m/uL (4.30-5.90); RDW 13.3 % (11.5-15.5); WBC 6.7 k/uL (3.8-10.6)
[2023-09-02 08:05] LABS: African American GFR (CKD) >90 (>60 ml/min/1.73 sqM); Anion Gap 6 mmol/L; Blood Urea Nitrogen 12 mg/dL (9-20); Calcium 9.1 mg/dL (8.4-10.2); Carbon Dioxide 27 mmol/L (22-30); Chloride 100 mmol/L (98-107); Glucose 208 mg/dL (74-99); Non-African American GFR(CKD) >90 (>60 ml/min/1.73 sqM); Potassium 3.5 mmol/L (3.5-5.1); Sodium 133 mmol/L (137-145)
[2023-09-02 09:51] VITALS: BP 120/74; PULSE 90; RESP 18; TEMP 98
--- NOTE | 2023-09-02 11:45 | P.PN ---
Subjective Progress Note Date: 09/02/23 Principal diagnosis: Acute DKA This is a 38-year-old male patient with a known history of diabetes mellitus hypertension, hyperlipidemia. He had been without his long-acting insulin for nearly 2 months due to insurance issues. He presented to [facility] earlier today with nausea and vomiting. He was found to be in DKA. He was transferred here for further care. He is seen in consultation in the emergency department. He is currently awake and alert in no acute distress. He is still somewhat nauseated. He is having issues with heartburn. White count 16.2. Hem oglobin 12.5. Platelets 251. Sodium 127. Potassium 3.6. Bicarb 10. Anion gap 23. BUN 29. Creatinine 1.14. Most recent glucose 333. He is currently on an insulin drip at 5.77 units/h. He is receiving normal saline at 200 MLS per hour. The patient is seen today September 01, 2023 in follow-up in the emergency department. He is currently resting on a stretcher. Awake and alert in no acute distress. No worsening shortness of breath. No chest pain. No palpitations. He is maintaining good O2 saturations in the 90s on room air. He is still on an insulin drip at 2.86 units/h. Receiving D5W and a half normal saline with 20 KCl at 150 MLS per hour. White count 11.8. Hemoglobin 11.6. Platelets 207. Sodium 130. Potassium 3.8. Bicarb 17. Anion gap 9. BUN 10. Creatinine 0.59. Glucose 280. Hemoglobin A1c 9.5. He is to be transitioned to Levemir and NovoLog sliding scale. Lovenox for DVT prophylaxis. NicoDerm patch in place. Reevaluate today on September 0102/2024, patient is doing great, hardly any symptoms. Basic metabolic profile is normal CBC is normal, blood sugar this morning is 208. Patient is already on Levemir insulin and is also on NovoLog insulin as per scale. I believe the patient should be considered for discharge home and follow-up on outpatient basis with his primary care physician or with case worker Objective - Vital Signs Vital signs: Vital Signs Temp 98 F 09/02/23 08:00 Pulse 90 09/02/23 08:00 Resp 18 09/02/23 08:00 BP 120/74 09/02/23 08:00 Pulse Ox 98 09/02/23 08:00 FiO2 Intake & Output 09/01/23 09/02/23 09/02/23 18:59 06:59 18:59 Intake Total 5.342 Output Total 1500 Balance -1494.658 Weight 57.153 kg Intake: Intake, IV Titration 5.342 Amount Insulin Regular 100 unit 5.342 In Sodium Chloride 0.9% 100 ml @ 0.1 UNITS/KG/HR 5.772 mls/hr IV .[id number] [facility] Rx#:[id number] Output: Urine 1500 Other: Voiding Method Urinal Urinal # Voids 1 - Exam GENERAL EXAM: Alert, revealed 38-year-old white male in no distress HEAD: Normocephalic. EYES: Normal reaction of pupils, equal size. NOSE: Clear with pink turbinates. THROAT: No erythema or exudates. NECK: No masses, no JVD. CHEST: No chest wall deformity. LUNGS: Clear bilaterally no rhonchi no wheezes CVS: S1 and S2 normal with no audible murmur, regular rhythm. ABDOMEN: No hepatosplenomegaly, normal bowel sounds, no guarding or rigidity. SKIN: No rashes CENTRAL NERVOUS SYSTEM: Alert oriented x 3 no gross deficit EXTREMITIES: No clubbing edema or cyanosis - Labs CBC & Chem 7: 09/02/23 07:28 09/02/23 07:28 Labs: Abnormal Lab Results - Last 24 Hours (Table) 09/01/23 09/01/23 09/01/23 Range/Units 09:01 12:23 20:02 Sodium (137-145) mmol/L Creatinine (0.66-1.25) mg/dL Glucose (74-99) mg/dL POC Glucose (mg/dL) 219 H 208 H (70-110) mg/dL Hemoglobin A1c 9.5 H (<=6.0) % 09/02/23 09/02/23 09/02/23 Range/Units 01:59 05:55 07:28 Sodium 133 L (137-145) mmol/L Creatinine 0.52 L (0.66-1.25) mg/dL Glucose 208 H (74-99) mg/dL POC Glucose (mg/dL) 179 H 186 H (70-110) mg/dL Hemoglobin A1c (<=6.0) % Assessment and Plan Assessment: Impression: Acute diabetic ketoacidosis secondary to noncompliance with treatment Hypertension Hyperlipidemia Chronic tobacco dependence Recommendation: Continue present treatment plan Patient is already on Levemir insulin NovoLog insulin Patient will be cleared for discharge home today. Time with Patient: Less than 30
[2023-09-02 11:50] LABS: Glucose,Whole Blood 172 mg/dL (70-110)
[2023-09-02 11:55] VITALS: BMI 18.6
--- NOTE | 2023-09-02 12:00 | P.DS ---
Providers Date of admission: 08/31/23 14:59 Expected date of discharge: 09/02/23 Attending physician: Zohaib Calderón MD Primary care physician: Rodolfo Yoon MD Hospital Course: Discharge Diagnosis: DKA secondary to difficulty obtaining medication Hyponatremia, mild Dehydration, improved Intractable nausea and vomiting, resolved Hypertension Dyslipidemia Tobacco dependency Alcohol use Hospital Course: Patient is a 38-year-old male with insulin-dependent diabetes mellitus, hypertension, dyslipidemia, tobacco abuse, and EtOH dependency who initially presented to an outside hospital with complaints of intractable nausea and vomiting. There he underwent extensive evaluation was found to have DKA with a serum bicarb of less then 5, blood sugar greater than 500, and sodium of 126. He was given IV fluid boluses, started on maintenance IV fluids, and an insulin drip. On arrival to our facility he was noted to be tachycardic with a pulse of 115. Initial laboratory analysis included CBC, VBG, and BMP which were remarkable for white blood cell count of 16.2, sodium 127, BUN 29, creatinine 1.14, glucose of 403, and pH of 7.25. He was continued on IV fluids and an insulin drip. Arrangements were made for admission for DKA. He continued on insulin drip. His anion gap resolved and he was transition to long and short acting insulin. He conitnued to do well. He was determined stable for discharge. Follow-up: Dr. Yoon in 1-2 days, Givien a 2 week supple of levemir and novolog and free glucometer. Family was able to adjust insurance. Patient seen and examined at bedside. Doing well, no complaints. Wants to go home. Mother present at bedside and all questions answered. Vital signs reviewed and stable. General: Nontoxic, no distress, appears at stated age Cardiovascular: S1S2 reg, no murmur, positive posterior tibial pulse bilateral, Lungs: CTA bilateral, no rhonchi, no rales, no accessory muscle use Abdominal: Soft, nontender to palpation, no guarding, no appreciable organomegaly Ext: No gross muscle atrophy, no edema b/l lower extremities, no contractures Neuro: CN II-XI grossly intact, no focal neuro deficits Psych: Alert, oriented, appropriate affect A total of 35 minutes of time were spent preparing this complex discharge summary. Patient was discharged on 09/02/23. This dictation was prepared using dragon medical voice recognition software. Though every attempt is made to correct errors during dictation some may still exist. Patient Condition at Discharge: Fair Plan - Discharge Summary Discharge Rx Participant: No New Discharge Prescriptions: New Insulin Lispro [humaLOG Kwikpen] 1 - 6 units SQ ACHS #5 pen Insulin Detemir [Levemir Flexpen] 10 units SQ BID #5 pen No Action Rosuvastatin [Crestor] 20 mg PO DIRECTED Aspirin EC [Ecotrin Low Dose] 81 mg PO DIRECTED carBAMazepine [carBAMazepine ER] 100 mg PO Q12HR Losartan [Cozaar] 25 mg PO DIRECTED Insulin Glargine [Lantus Vial] 20 unit SQ DIRECTED INSULIN ASPART (NovoLOG) [NovoLOG (formulary)] See Protocol SQ DIRECTED clonazePAM 0.5 mg PO Q12H PRN PRN Reason: Anxiety Discharge Medication List Aspirin EC [Ecotrin Low Dose] 81 mg PO DIRECTED 08/31/23 [History] INSULIN ASPART (NovoLOG) [NovoLOG (formulary)] See Protocol SQ DIRECTED 08/31/23 [History] Insulin Glargine [Lantus Vial] 20 unit SQ DIRECTED 08/31/23 [History] Losartan [Cozaar] 25 mg PO DIRECTED 08/31/23 [History] Rosuvastatin [Crestor] 20 mg PO DIRECTED 08/31/23 [History] carBAMazepine [carBAMazepine ER] 100 mg PO Q12HR 08/31/23 [History] clonazePAM 0.5 mg PO Q12H PRN 08/31/23 [History] Insulin Detemir [Levemir Flexpen] 10 units SQ BID #5 pen 09/01/23 [Rx] Insulin Lispro [humaLOG Kwikpen] 1 - 6 units SQ ACHS #5 pen 09/01/23 [Rx] Follow up Appointment(s)/Referral(s): Rodolfo Yoon MD [Primary Care Provider] - 1-2 days Patient Instructions/Handouts: Diabetic Ketoacidosis (DC) Activity/Diet/Wound Care/Special Instructions: Activity: As tolerated Diet: carb consistent Special Instructions: Take your long acting insulin 12 units tomorrow morning, then when you check your blood sugar on 09/03 if it is greater than 150 increased your long acting dose to 14 units that day. [facility] has a free glucometer and low-cost testing supplies. [address], [place] [address]
[2023-09-02] MEDS: INSULIN DETEMIR (LEVEMIR) 100 UNIT/ML SYR SQ ONE (12:19)
--- NOTE | 2023-09-06 14:30 | CDI ---
Documentation Clarification Form Date: 09/06/23 From: Adriana Smallwood Admit Date: 08/31/2023 02:59:00 PM Patient Name: Jose Osorio Visit Number: [id number] Discharge Date: 09/02/2023 12:38:00 PM ATTENTION: The [facility] Documentation [facility]ists (CDI) and [facility] Coding Staff appreciate your assistance in clarifying documentation. Please respond to the clarification below the line at the bottom and electronically sign. The CDI & [facility] Coding staff will review the response and follow-up if needed. Please note: Queries are made part of the Legal Health Record. If you have any questions, please contact the author of this message via ITS. Dr. Jennifer Trejo, Conflicting documentation has been found in the medical record. As attending physician, please provide clarification. Per ED documentation, states pseudo hyponatremia. Per consult, PNs and discharge summary, states hyponatremia. History/Risk Factors: T2DM w ketoacidosis, seizures, HLD, Bipolar, HTN Clinical Indicators: Patient with DKA Type 2 and low sodium: 127, 130, 131, 130, & 133 (08/30-09/01). Treatment: Sodium chloride 0.9% V and Insulin [id number] units, monitor labs Please clarify which diagnosis is most appropriate: [ ] Pseudo hyponatremia [ x ] Hyponatremia [ ] Other (please specify) [ ] Unable to determine MTDD
== END 2023-09-02 12:38 | disposition home or self-care (01) | DRG 638 ==
LOC: EC 13:34 → 1SOBS 14:59 → 3SCARD 17:49
PROVIDERS: ADMIT Student in an Organized Health Care Education/Training Program; ATTEND Student in an Organized Health Care Education/Training Program
DX: E11.10 Type 2 diabetes mellitus with ketoacidosis without coma (principal); E87.1 Hypo-osmolality and hyponatremia; R56.9 Unspecified convulsions; E78.5 Hyperlipidemia, unspecified; F31.9 Bipolar disorder, unspecified; I10 Essential (primary) hypertension; Z79.4 Long term (current) use of insulin; Z28.310 Unvaccinated for COVID-19; E86.0 Dehydration; F90.9 Attention-deficit hyperactivity disorder, unspecified type; T50.906A Underdosing of unspecified drugs, medicaments and biological substances, initial encounter; Z91.128 Patient's intentional underdosing of medication regimen for other reason; F17.210 Nicotine dependence, cigarettes, uncomplicated; Z71.6 Tobacco abuse counseling; Z79.82 Long term (current) use of aspirin; Z79.899 Other long term (current) drug therapy; Z88.5 Allergy status to narcotic agent
CPT/HCPCS: 36415; 80048; 80051; 82565; 82803; 82947; 83036; 84100; 84520; 85025; 85027; 93005; 96361; 96365; 96366; 96375; 96376; 99285